=== PATIENT | male | born 1955 ===

== ENCOUNTER 2023-07-03 08:16 | Outpatient (CLI) | payer MEDICARE, OTHER ==
[2023-07-03] MEDS ORDERED: Iopamidol 370 76% 100 ML VIAL ONE (15:27)
== END 2023-07-03 08:17 | disposition home or self-care (01) ==
LOC: CT 08:16
PROVIDERS: ATTEND Internal Medicine Gastroenterology
DX: R19.7 Diarrhea, unspecified (principal); R63.4 Abnormal weight loss
CPT/HCPCS: 74177; 82565; Q9967